=== PATIENT | female | born 1975 | race Caucasian/White ===

== ENCOUNTER → 2016-11-16 | Outpatient (CLI) | payer BC, OTHER | END | disposition home or self-care (01) | LOC: C.RDSM 11:41 | PROVIDERS: ATTEND Physical Medicine & Rehabilitation Sports Medicine | DX: M25.572 Pain in left ankle and joints of left foot (principal); Z98.890 Other specified postprocedural states ==

== ENCOUNTER 2016-11-18 12:29 | Emergency (ER) | payer OTHER ==
[~2016-11-18] VITALS: Ht 165.1 cm; Wt 90.8 kg
[2016-11-18 12:35] VITALS: TEMP 36.6; Ht 165.1 cm; Wt 90.8 kg
[2016-11-18] MEDS ORDERED: MoRPHine SULFATE 4 MG/ML 1 ML CARP\\VIAL IV STA (12:51)
[2016-11-18] MEDS ORDERED: ONDANSETRON INJ 2 MG/ML 2 ML VIAL IV STA (12:51)
[2016-11-18] MEDS ORDERED: OPTIRAY 320 IV PRN (13:00)
[2016-11-18 13:23] LABS: BASO % 0.1 %; BASO ABS # 0.01 K/uL (0-0.2); COMPLETE YES; EOS % 1.5 %; HEMATOCRIT 42.6 % (37-47); IG% 0.2 %; LYMPH % 26.7 %; LYMPH ABS # 2.59 K/uL (1.2-3.4); MEAN CELL VOLUME 85.2 fL (80-100); MEAN CORPUSCULAR HEMOGLOBIN 28.6 pg (25-34); MEAN CORPUSCULAR HGB CONC 33.6 g/dl (32-36); MEAN PLATELET VOLUME 9.6 fL (7.4-10.4); MONO % 4.5 %; PLATELET COUNT 382 K/uL (130-400); WHITE BLOOD COUNT 9.69 K/uL (4.8-10.8)
[2016-11-18 13:38] LABS: BUN/CREATININE RATIO 16.3 (10-20); CREATININE 0.68 mg/dl (0.60-1.20); POTASSIUM 3.9 mmol/L (3.5-5.1)
[2016-11-18] MEDS ORDERED: SODIUM CHLORIDE 0.9% 1000ML 1,000 ML IV STA (13:45)
[2016-11-18 15:35] LABS: URINE APPEARANCE CLEAR (CLEAR); URINE BILIRUBIN NEG (NEG); URINE COLOR YELLOW; URINE NITRITE NEG (NEG); URINE SPECIFIC GRAVITY 1.004 (1.000-1.030); UROBILINOGEN NEG (NEG)
[2016-11-18 15:41] LABS: MANUAL MICROSCOPIC REQUIRED? NO; REVIEW REQ? NO
--- NOTE | 2016-11-18 15:49 | DIAGNOSTIC IMAGING REPORT ---
CT SCAN OF THE ABDOMEN AND PELVIS WITH IV CONTRAST CLINICAL HISTORY: Right lower quadrant abdominal pain. COMPARISON STUDY: Abdominal CT dated 01/18/2006. TECHNIQUE: Following the IV administration of 119 cc of Optiray 320, CT scan of the abdomen and pelvis is performed from the lung bases to the proximal femora. Images are reviewed in the axial, sagittal, and coronal planes. IV contrast was administered without complication. Automated dose control exposure was utilized. CT DOSE: 765.49 mGy.cm FINDINGS: Lung bases: The heart is normal in size and without pericardial effusion. A calcified granuloma is seen at the right lung base. The lung bases are otherwise clear noting dependent atelectasis. Liver: The contrast-enhanced liver is normal in size, contour, and attenuation. There is no intrahepatic biliary ductal dilatation. The hepatic veins and portal veins are patent. Gallbladder: Unremarkable. Spleen: Normal in size and attenuation. Pancreas: Unremarkable. Adrenal glands: Unremarkable. Kidneys: The contrast enhanced kidneys are normal in size and without hydronephrosis. The kidneys enhance symmetrically. Abdominal vasculature: The abdominal aorta is normal in course and caliber. Bowel: The small bowel and colon are normal in course and caliber. The appendix is well-visualized and normal. Peritoneum: There is no intraperitoneal free air or abdominal ascites. There is a small fat-containing umbilical hernia. Lymphadenopathy: None. Pelvic viscera: The bladder, uterus, and adnexa are normal as visualized. There are bilateral ovarian follicles. A dominant follicle in the right ovary measures 2.5 cm. Skeletal structures: No lytic or blastic lesions are seen. IMPRESSION: There are no acute infectious or inflammatory findings in the abdomen or pelvis. Electronically signed by: Gurdeep Webb M.D. 11/18/2016 3:47 PM Dictated Date/Time: 11/18/2016 3:43 PM
[2016-11-18 16:24] VITALS: BP 144/96; PULSE 65; O2SAT 100
--- NOTE | 2016-11-18 17:54 | EMERGENCY ROOM VISIT NOTE ---
History Report prepared by Doraibmaria antonia: Bere Dykes Under the Supervision of: Dr. Jose Carlos Bahena M.D. First contact with patient: 12:39 Chief Complaint: ABDOMINAL PAIN Stated Complaint: ABDOMINAL PAIN, REFERRED BY MD Nursing Triage Summary: RLQ pain since yesterday. Nausea. Denies urinary s/sx or vaginal d/c or bleeding. History of Present Illness The patient is a 41 year old female who presents to the Emergency Room with complaints of constant right lower quadrant abdominal pain that began yesterday. Per nursing notes, the pain is an 8/10. She states that the pain came on suddenly. Nothing makes the pain better nor worse. It radiates slightly into her back. Denies fever, vomiting, diarrhea, urinary symptoms, abnormal vaginal discharge or bleeding or other complaints. The patient states that she had sexual intercourse once in the past 3 weeks and is unsure of a chance of . Source of History: patient Onset: yesterday Position: abdomen (RLQ) Symptom Intensity: 8/10 Timing: constant Modifying Factors (Relieving): other (none) Associated Symptoms: No diarrhea, No fevers, No vomiting Review of Systems See HPI for pertinent positives & negatives. A total of 10 systems reviewed and were otherwise negative. Past Medical & Surgical Medical Problems: (1) Diabetes Family History Cancer Heart disease Social History Smoking Status: Never Smoker Marital Status: Occupation Status: employed Current/Historical Medications No Active Prescriptions or Reported Meds Allergies Coded Allergies: NSAIDs (Verified Allergy, Mild, FREQUENT KIDNEY INFECTIONS AND STENTS, 07/25) NO NSAIDS A PRECAUTION FOR PREEXISTING POOR KIDNEY FUNCTION Physical Exam Vital Signs Date Time Temp Pulse Resp B/P Pulse Ox O2 Delivery O2 Flow Rate FiO2 11/18/16 16:24 65 18 144/96 100 11/18/16 13:57 61 16 128/92 99 Room Air 11/18/16 12:35 36.6 76 18 130/86 98 Room Air Physical Exam Constitutional: Vital signs reviewed. Eyes: Pupils are equal round reactive to light. Conjunctiva are noninjected. ENT: Pharynx is clear without erythema or exudate. Mucous membranes are moist. Neck supple without meningeal signs. Respiratory: Clear to auscultation bilaterally. Breath sounds are equal bilaterally. Cardiovascular: Regular rate and rhythm. No rubs or gallops. GI: Soft, nondistended. Right lower quadrant tenderness, no guarding. Bowel sounds are present. Musculoskeletal: No peripheral edema. No lower extremity tenderness. Integumentary: No cyanosis. Neurological: The patient is awake and alert. No focal deficits. Psychiatric: Normal affect. Medical Decision & Procedures ER Provider Diagnostic Interpretation: Radiology results as stated below per my review and the radiologist's interpretation: CT SCAN OF THE ABDOMEN AND PELVIS WITH IV CONTRAST CLINICAL HISTORY: Right lower quadrant abdominal pain. COMPARISON STUDY: Abdominal CT dated 01/18/2006. TECHNIQUE: Following the IV administration of 119 cc of Optiray 320, CT scan of the abdomen and pelvis is performed from the lung bases to the proximal femora. Images are reviewed in the axial, sagittal, and coronal planes. IV contrast was administered without complication. Automated dose control exposure was utilized. CT DOSE: 765.49 mGy.cm FINDINGS: Lung bases: The heart is normal in size and without pericardial effusion. A calcified granuloma is seen at the right lung base. The lung bases are otherwise clear noting dependent atelectasis. Liver: The contrast-enhanced liver is normal in size, contour, and attenuation. There is no intrahepatic biliary ductal dilatation. The hepatic veins and portal veins are patent. Gallbladder: Unremarkable. Spleen: Normal in size and attenuation. Pancreas: Unremarkable. Adrenal glands: Unremarkable. Kidneys: The contrast enhanced kidneys are normal in size and without hydronephrosis. The kidneys enhance symmetrically. Abdominal vasculature: The abdominal aorta is normal in course and caliber. Bowel: The small bowel and colon are normal in course and caliber. The appendix is well-visualized and normal. Peritoneum: There is no intraperitoneal free air or abdominal ascites. There is a small fat-containing umbilical hernia. Lymphadenopathy: None. Pelvic viscera: The bladder, uterus, and adnexa are normal as visualized. There are bilateral ovarian follicles. A dominant follicle in the right ovary measures 2.5 cm. Skeletal structures: No lytic or blastic lesions are seen. IMPRESSION: There are no acute infectious or inflammatory findings in the abdomen or pelvis. Electronically signed by: Gurdeep Webb M.D. 11/18/2016 3:47 PM Dictated Date/Time: 11/18/2016 3:43 PM Laboratory Results 11/18/16 13:00 Red Blood Count 5.00, Mean Corpuscular Volume 85.2, Mean Corpuscular Hemoglobin 28.6, Mean Corpuscular Hemoglobin Concent 33.6, Mean Platelet Volume 9.6, Neutrophils (%) (Auto) 67.0, Lymphocytes (%) (Auto) 26.7, Monocytes (%) (Auto) 4.5, Eosinophils (%) (Auto) 1.5, Basophils (%) (Auto) 0.1, Neutrophils # (Auto) 6.48, Lymphocytes # (Auto) 2.59, Monocytes # (Auto) 0.44, Eosinophils # (Auto) 0.15, Basophils # (Auto) 0.01 11/18/16 13:00 Test 11/18/16 13:00 11/18/16 13:41 11/18/16 15:00 White Blood Count 9.69 K/uL (4.8-10.8) Red Blood Count 5.00 M/uL (4.2-5.4) Hemoglobin 14.3 g/dL (12.0-16.0) Hematocrit 42.6 % (37-47) Mean Corpuscular Volume 85.2 fL (80-100) Mean Corpuscular Hemoglobin 28.6 pg (25-34) Mean Corpuscular Hemoglobin Concent 33.6 g/dl (32-36) Platelet Count 382 K/uL (130-400) Mean Platelet Volume 9.6 fL (7.4-10.4) Neutrophils (%) (Auto) 67.0 % Lymphocytes (%) (Auto) 26.7 % Monocytes (%) (Auto) 4.5 % Eosinophils (%) (Auto) 1.5 % Basophils (%) (Auto) 0.1 % Neutrophils # (Auto) 6.48 K/uL (1.4-6.5) Lymphocytes # (Auto) 2.59 K/uL (1.2-3.4) Monocytes # (Auto) 0.44 K/uL (0.11-0.59) Eosinophils # (Auto) 0.15 K/uL (0-0.5) Basophils # (Auto) 0.01 K/uL (0-0.2) RDW Standard Deviation 43.5 fL (36.4-46.3) RDW Coefficient of Variation 14.0 % (11.5-14.5) Immature Granulocyte % (Auto) 0.2 % Immature Granulocyte # (Auto) 0.02 K/uL (0.00-0.02) Anion Gap 6.0 mmol/L (3-11) Est Creatinine Clear Calc Drug Dose 123.7 ml/min Estimated GFR () 127.7 Estimated GFR (Non- 110.2 BUN/Creatinine Ratio 16.3 (10-20) Calcium Level 9.0 mg/dl (8.5-10.1) Total Bilirubin 0.4 mg/dl (0.2-1) Direct Bilirubin 0.1 mg/dl (0-0.2) Aspartate Amino Transf (AST/SGOT) 13 U/L (15-37) Alanine Aminotransferase (ALT/SGPT) 26 U/L (12-78) Alkaline Phosphatase 98 U/L (45-117) Total Protein 7.6 gm/dl (6.4-8.2) Albumin 3.5 gm/dl (3.4-5.0) Lipase 109 U/L (73-393) Urine Test NEG (NEG) Urine Color YELLOW Urine Appearance CLEAR (CLEAR) Urine pH 6.0 (4.5-7.5) Urine Specific [place] 1.004 (1.000-1.030) Urine Protein NEG (NEG) Urine Glucose (UA) NEG (NEG) Urine Ketones NEG (NEG) Urine Occult Blood NEG (NEG) Urine Nitrite NEG (NEG) Urine Bilirubin NEG (NEG) Urine Urobilinogen NEG (NEG) Urine Leukocyte Esterase NEG (NEG) Laboratory results as reviewed by me. Medications Administered Medications (Trade) Dose Ordered Sig/Timmy Route Start Time Stop Time Status Last Admin Dose Admin Morphine Sulfate (MoRPHine SULFATE INJ) 4 mg ONE STAT IV 11/18/16 12:51 11/18/16 12:52 DC 11/18/16 13:23 4 MG Ondansetron HCl 4 mg 4 mg NOW STAT IV 11/18/16 12:51 11/18/16 12:52 DC 11/18/16 13:22 4 MG Sodium Chloride (Nss 1000ml) 1,000 ml @ 999 mls/hr Q1H1M STAT IV 11/18/16 13:45 11/18/16 14:45 DC 11/18/16 13:48 999 MLS/HR ED Course 1244: The patient was evaluated in room C3. A complete history and physical exam was performed. 1251: Ordered Zofran Inj 4 mg IV, Morphine Sulfate 4 mg IV. 1345: Ordered NSS 1000 ml @ 999 mls/hr IV. 1348: I reassessed the patient. She is feeling better. I discussed test results so far with her. 1605: I reassessed the patient. She is still having some pain in the right lower pelvis. She will follow up with [employer]. The patient was discharged home. Medical Decision This is a 41-year-old female presents with right lower quadrant abdominal pain. Differential diagnosis includes acute appendicitis, perforation, abscess, ectopic , ovarian cyst, kidney stone. I did perform a limited focused review of portions of the patient's old chart on the electronic medical record. The patient has had no recent pertinent visits to this hospital. I did evaluate the patient as noted above. IV access was established. I did treat the patient with IV morphine and Zofran. I did order and personally review the patient's urinalysis as described above. There is no evidence of infection or blood. Urine test is negative. I did order and review the patient's blood work as noted in the electronic medical record. Her white blood cell count is not elevated. I did order a CT of the abdomen and pelvis. I did review the images myself as well as the radiology report as described above. There is no evidence of acute appendicitis. The appendix was visualized and normal. She does have dominant follicles on the right ovary. I did reassess the patient. She did feel better after the medication she was given. I did discuss the test results with her in detail. I did recommend close follow with her doctor and regulatory assistant for further evaluation. She was discharged in good condition. She was given return instructions as outlined below. Impression Primary Impression: RLQ abdominal pain Departure Information Dispostion Home / Self-Care Prescriptions No Active Prescriptions or Reported Meds Referrals Kem Brito III, M.D. (PCP) Patient Instructions ED Abd Pain Unkn Cause Fem, My [facility] Additional Instructions You have been examined and treated today on an emergency basis only. This is not a substitute for, or an effort to provide, complete comprehensive medical care. It is impossible to recognize and treat all injuries or illnesses in a single emergency department visit. It is therefore important that you follow up closely with your physician and/or regulatory assistant within 48 hours. Call as soon as possible for an appointment. Return for worsening symptoms or if you develop fever, vomiting, or any other concerning symptoms.
== END 2016-11-18 16:25 | disposition home or self-care (01) ==
LOC: C.EDB 12:30 → C.EDC 16:25
DX: R10.31 Right lower quadrant pain (principal); E11.9 Type 2 diabetes mellitus without complications; Z88.8 Allergy status to other drugs, medicaments and biological substances; Z80.9 Family history of malignant neoplasm, unspecified; Z82.49 Family history of ischemic heart disease and other diseases of the circulatory system

== ENCOUNTER → 2016-12-22 | Outpatient (CLI) | payer OTHER | END | disposition home or self-care (01) | LOC: C.PAPS 11:11 | PROVIDERS: ATTEND Obstetrics & Gynecology | DX: Z01.419 Encounter for gynecological examination (general) (routine) without abnormal findings (principal) ==

== ENCOUNTER → 2016-12-22 | Outpatient (CLI) | payer OTHER | END | disposition home or self-care (01) | LOC: C.LAB1850 09:42 | PROVIDERS: ATTEND Obstetrics & Gynecology | DX: N93.9 Abnormal uterine and vaginal bleeding, unspecified (principal); E28.8 Other ovarian dysfunction ==

== ENCOUNTER → 2017-06-17 | Outpatient (CLI) | payer OTHER ==
[2017-06-17 10:43] LABS: CHOLESTEROL/HDL RATIO 4.4
== END | disposition home or self-care (01) ==
LOC: C.LAB1850 09:11
PROVIDERS: ATTEND Internal Medicine
DX: Z13.220 Encounter for screening for lipoid disorders (principal)

== ENCOUNTER → 2018-03-08 | Outpatient (CLI) | payer OTHER ==
[~2018-03-08] MED LIST: CIPR-255 PO; PHEN-876 PO
[2018-03-08 15:57] LABS: ALBUMIN 3.4 gm/dl (3.4-5.0); BLOOD UREA NITROGEN 11 mg/dl (7-18); CALCIUM 8.5 mg/dl (8.5-10.1); CARBON DIOXIDE 26 mmol/L (21-32); CREATININE 0.73 mg/dl (0.60-1.20); GLUCOSE 113 mg/dl (70-99); PHOSPHORUS 3.5 mg/dl (2.5-4.9); POTASSIUM 3.7 mmol/L (3.5-5.1); SODIUM 136 mmol/L (136-145)
== END | disposition home or self-care (01) ==
LOC: C.LAB1850 14:13
PROVIDERS: ATTEND Internal Medicine Nephrology
DX: N20.0 Calculus of kidney (principal); E55.9 Vitamin D deficiency, unspecified

== ENCOUNTER 2024-02-06 19:19 | Inpatient (IN) ==
[2024-02-06 19:44] LABS: Hematocrit (blood only) 45.4 % (37.0-47.0); Hemoglobin 14.7 g/dl (12.0-16.0); Mean Corpuscular Hemoglobin 26.5 pg (25.0-34.0); Mean Corpuscular Hgb Conc 32.4 g/dL (32.0-36.0); Mean Corpuscular Volume 81.8 fL (80.0-100.0); Mean Platelet Volume 9.5 fL (9.4-12.4); Platelet Count 417 K/uL (130-400); RDW Coefficient of Variation 14.6 % (11.5-14.5); RDW Standard Deviation 42.8 fL (36.4-46.3); Red Blood Count 5.55 M/uL (4.20-5.40); White Blood Count 19.94 K/ul (4.8-10.8)
[2024-02-06 20:00] LABS: Appearance Urine Turbid (Clear); Bacteria Urine Automated None Seen (None Seen); Bilirubin Urine Negative (Negative); Blood Urine Trace (Negative); Cast Urine Automated 0-2 /lpf (0-2); Color Urine Yellow; Glucose Urine UA Negative (Negative); Ketones Urine Trace (Negative); Leukocyte Esterase Urine 3+ (Negative); Nitrite Urine Negative (Negative); Protein Urine 1+ (Negative); RBC Urine Automated 0-2 /hpf (0-2); Specific Gravity Urine 1.016 (1.000-1.030); Urobilinogen Urine Negative (Negative); WBC Urine Automated >50 /hpf (0-5); pH Urine 8.5 (4.5-7.5)
[2024-02-06 20:00] LABS: Albumin Globulin Ratio 1.2 (0.9-2); Albumin Level 4.5 gm/dl (3.4-5.0); Bilirubin,Total 0.6 mg/dl (0.2-1.0); Calcium 9.8 mg/dl (8.6-10.3); Est GFR (African American) 102.5 ml/min; Est GFR (Non-African American) 88.4 ml/min; Globulin 3.9 gm/dl (2.5-4.0); Potassium 3.7 mmol/L (3.5-5.1); Total Protein 8.4 gm/dl (6.0-8.3)
[2024-02-06 20:06] LABS: Basophils # (auto) 0.05 K/uL (0.00-0.20); Basophils % (auto) 0.3 %; Eosinophils # (auto) 0.03 K/uL (0.00-0.50); Eosinophils % (auto) 0.2 %; Immature Granulocytes # (auto) 0.11 K/uL (0.01-0.20); Immature Granulocytes % (auto) 0.6 %; Lymphocytes # (auto) 1.17 K/uL (1.20-3.40); Lymphocytes % (auto) 5.9 %; Monocytes # (auto) 0.56 K/uL (0.11-0.59); Monocytes % (auto) 2.8 %; Neutrophils # (auto) 18.02 K/uL (1.40-6.50); Neutrophils % (auto) 90.2 %; Polychromasia 1+; Toxic Vacuolation 1+
[2024-02-06 20:33] LABS: Influenza A virus by PCR Negative (Neg); Influenza B virus by PCR Negative (Neg); RSV by PCR Negative (Neg); SARS CoV2 RNA(COVID-19) Ceph NEGATIVE (Negative)
[2024-02-06] MEDS: OPTIRAY 320 100ml IV ONE (20:58)
[2024-02-06] MEDS: cefTRIAXone SODIUM 2,000 MG/50 ML BAG IV STA (21:04)
[2024-02-06] MEDS: ACETAMINOPHEN 500 MG TAB PO STA (21:04)
[2024-02-06] MEDS: SODIUM CHLORIDE 0.9% 1,000 ML IV ONE (21:05)
--- NOTE | 2024-02-06 21:16 | Emergency Department Note ---
Impression & Plan Pyelonephritis, Back pain ED Provider Note Provider: Ramon Samayoa MD DATE OF SERVICE: 02/06/2024 CHIEF COMPLAINT: Back pain, lower abdominal pain HISTORY OF PRESENT ILLNESS: Patient is a 48-year-old female history of kidney stones presenting here today reporting over the last 2 days she is experiencing some lower abdominal discomfort and now worsening pain in the lower back region left greater than right. No significant nausea or vomiting. Some low-grade fevers by report yesterday and today. Little bit of difficulty urinating but no blood in the urine reported. Has not take anything for pain at home (Tylenol or NSAIDs) but has been having a few myalgias in her shoulders and legs. History of some kidney stone before this may be a little bit similar. No syncope or trauma reported. PAST MEDICAL HISTORY: As noted above MEDICATIONS: Reviewed home medications does not currently report significant SOCIAL HISTORY: Non-smoker PHYSICAL EXAM: GENERAL: alert and oriented in no acute distress on stretcher laying on her left side resting Head: normocephalic and atraumatic EYES: No injection, discharge or icterus. EOMI. NECK: Trachea midline. ENT: Mucous membranes pink and moist. LUNGS: Airway patent. No retractions or tachypnea HEART: Regular tachycardic rate and rhythm ABDOMEN: Soft and non-tender in the upper abdomen with some slight suprapubic tenderness. Nonscaly tender in the right lower quadrant. No masses appreciable. BACK: Some left CVA tenderness with some slight bilateral SI joint tenderness SKIN: Acyanotic, warm, dry, without rashes EXTREMITIES: Without swelling, tenderness or deformity NEUROLOGICAL: No focal deficits. No aphasia. No facial droop or slurred speech. Ambulatory. EK bpm sinus tachycardia without PVC or PAC. No acute ST segment elevation or depression with a QTc of 440. CONTINUOUS CARDIAC MONITORING: was ordered and showed a heart rate of 80s-120s bpm in sinus tachycardia to NSR Patient's laboratory studies and imaging reviewed. Differential includes Renal colic, UTI, appendicitis, diverticulitis, mesenteric ischemia, aortic pathology, infections, inflammatory bowel disease, PUD, biliary pathology, as well as other pathologies. IMPRESSION/MEDICAL DECISION MAKING: Patient with some low back pain and suprapubic pain. Low-grade fever upon arrival mildly tachycardic. Given some IV fluids as well as some Tylenol here. Blood work from triage with evidence of significant leukocytosis of 19.9. Urinalysis grossly positive for signs of infection although no RBCs noted. Sent for scan to exclude kidney stone or other intra-abdominal pathology but seems likely UTI and pyelonephritis. Negative Lyme, flu, COVID and RSV screen. No significant respiratory symptoms and doubt pneumonia. Slight hyponatremia 133 with normal renal function 0.8. No evidence of acute hepatitis on labs. Symptoms do not seem consistent with pancreatitis or bowel obstruction. Given IV fluids in addition to the Tylenol as well as a dose of ceftriaxone for antibiotic coverage. Patient does not appear meningitic. CT scan of the abdomen pelvis obtained. Liter of normal saline was ordered as well as a liter of LR for 2 L of IV crystalloid administered more than 30 mm/kg based on ideal body weight given elevated BMI. Patient resting on reassessment. No distress and advised of some wait for radiology report for Wednesday evening to return. Do wish to exclude kidney stone with findings concerning for UTI and pyelonephritis. Does not appear unstable at this time. Signed out to Dr. Ortiz waiting on CT report. Will continue be monitored for any instability such as hypotension. DIAGNOSIS: Acute UTI, pyelonephritis DISPOSITION: Signed out pending CT report for final disposition possible admission if findings of infected kidney stone noted Past Med/Surg History Problem List Right ureteral stone Sepsis Hypertension Right nephrolithiasis Back pain (Acute) Pyelonephritis (Acute) Encounter for pre-operative examination Hematuria Urinary symptom or sign H/O gestational diabetes mellitus, not currently Subclinical hypothyroidism Per records ; TSH and Free T4 WNL 07/2023 Elevated platelet count Hyperpigmentation of skin Hearing decreased Heavy menstrual bleeding Encounter for gynecological examination without abnormal finding Multiple thyroid nodules (Chronic) Goiter (Chronic) BMI 32.0-32.9,adult Nephrolithiasis (Chronic) Sensorineural hearing loss of both ears slight, no hearing aides 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 - can't tolerate TSH and Free T4 WNL 07/2023 Vitamin D deficiency Medical History Hyperglycemia Hgb A1C 6.3 in 07/2023 Borderline hyperlipidemia Borderline hypertension Nausea and vomiting after administration of anesthetic agent Bladder mass History of kidney stones History of anemia Surgical History Hx of biopsy Thyroid Nodule, benign History of laparoscopy x2 for ovaries History of open reduction and internal fixation (ORIF) procedure x 3 surgeries left tib/fib/hardware & removal of hardware History of cystoscopy History of lithotripsy x 2 Status post excision of lipoma abdomen - benign History of wisdom tooth extraction History of tonsillectomy and adenoidectomy S/P section Family History Grandfather (Maternal) Heart disease Myocardial infarction Daughter Ventricular septal defect Aunt Breast cancer Father Prostate cancer Other No family history of adverse response to anesthesia Denies family history of Ovarian cancer Colorectal cancer Social History Smoking Status: Never smoker Second Hand Exposure: No; Do You Dip or Chew Tobacco: No; Hx Alcohol Use: Yes Alcohol type: beer Hx Substance Use: No Preferred Language: Mongolian Communication Ability: Effective Servicer Coin Machines Required: No Beliefs That Will Affect Care: None marital status: Current Living Situation: Spouse Current Living Situation Comment: Lives with and 5 children current occupational status: employed current occupation: Landlord Feels Safe at Home: No Is there a partner from a previous relationship who is making you feel unsafe now?: No Childhood Exposure to Second-Hand Smoke: No Dental Care, Regularly: Yes Seatbelt Use: always Sunscreen Use: Yes Assistive Devices: None Allergies Allergies Allergy/AdvReac Type Severity Reaction Status Date / Time Estrogens Allergy Severe FACE Verified 02/06/24 21:18 SWELLS WITH CONTROL PILLS ethinyl estradiol Allergy Severe FACE Verified 02/06/24 21:18 [From NuvaRing] SWELLED etonogestrel [From NuvaRing] Allergy Severe FACE Verified 02/06/24 21:18 SWELLED Home Meds Home Medications Medication Instructions Recorded Confirmed cholecalciferol (vitamin D3) 50 5,000 unit PO QAM 09/04/21 02/06/24 mcg (2,000 unit) capsule hydrochlorothiazide 25 mg tablet 25 mg PO QAM 10/21/23 02/06/24 biotin 10 mg tablet 10 mg PO DAILY 02/06/24 02/06/24 Results & Data (ED) Vital Signs Vital Signs - 24 hr 02/06/24 19:20 02/06/24 19:43 02/06/24 22:11 Temperature 37.6 C H Temperature Source Oral Pulse Rate 121 H 109 H Pulse Rate [Apical] 79 Respiratory Rate 20 20 Respiratory Effort / Characteristics Non-Labored Spontaneous Non-Labored Spontaneous Respiratory Depth Normal Normal Respiratory Pattern Regular Blood Pressure 123/79 Blood Pressure [Right Arm] 113/68 Blood Pressure Mean 93 Blood Pressure Mean [Right Arm] 83 Pulse Oximetry 97 95 Oxygen Delivery Method Room Air Room Air Sepsis Recent Fever Within 48 Hours No Sepsis New/Unexplained Change in Mental Status N/A Sepsis Action Taken by Nursing No Action Required 02/06/24 23:00 02/06/24 23:30 02/06/24 23:40 Temperature Temperature Source Pulse Rate 74 Pulse Rate [Apical] 85 78 Respiratory Rate 18 18 Respiratory Effort / Characteristics Non-Labored Non-Labored Respiratory Depth Normal Normal Respiratory Pattern Regular Regular Blood Pressure Blood Pressure [Right Arm] 113/74 114/74 Blood Pressure Mean Blood Pressure Mean [Right Arm] 87 87 Pulse Oximetry 96 92 Oxygen Delivery Method Room Air Room Air Sepsis Recent Fever Within 48 Hours Sepsis New/Unexplained Change in Mental Status Sepsis Action Taken by Nursing 02/07/24 00:00 02/07/24 01:00 02/07/24 02:00 Temperature Temperature Source Pulse Rate Pulse Rate [Apical] 72 76 73 Respiratory Rate 18 16 16 Respiratory Effort / Characteristics Non-Labored Non-Labored Non-Labored Respiratory Depth Normal Normal Normal Respiratory Pattern Regular Regular Regular Blood Pressure Blood Pressure [Right Arm] 100/59 L 96/56 L 108/70 Blood Pressure Mean Blood Pressure Mean [Right Arm] 72 69 82 Pulse Oximetry 94 99 97 Oxygen Delivery Method Room Air Room Air Room Air Sepsis Recent Fever Within 48 Hours Sepsis New/Unexplained Change in Mental Status Sepsis Action Taken by Nursing 02/07/24 03:00 02/07/24 03:38 Temperature Temperature Source Pulse Rate 70 Pulse Rate [Apical] 57 L Respiratory Rate 16 Respiratory Effort / Characteristics Non-Labored Respiratory Depth Normal Respiratory Pattern Regular Blood Pressure Blood Pressure [Right Arm] 91/60 L Blood Pressure Mean Blood Pressure Mean [Right Arm] 70 Pulse Oximetry 96 Oxygen Delivery Method Room Air Sepsis Recent Fever Within 48 Hours Sepsis New/Unexplained Change in Mental Status Sepsis Action Taken by Nursing Laboratory Data 02/06/24 19:30 02/06/24 19:30 Lab Results 02/06/24 02/06/24 02/06/24 Range/Units 19:27 19:30 19:42 WBC 19.94 H (4.8-10.8) K/ul RBC 5.55 H (4.20-5.40) M/uL Hgb 14.7 (12.0-16.0) g/dl Hct 45.4 (37.0-47.0) % MCV 81.8 (80.0-100.0) fL MCH 26.5 (25.0-34.0) pg MCHC 32.4 (32.0-36.0) g/dL RDW Std Deviation 42.8 (36.4-46.3) fL RDW Coeff of Srini 14.6 H (11.5-14.5) % Plt Count 417 H (130-400) K/uL MPV 9.5 (9.4-12.4) fL Immature Gran % (Auto) 0.6 % Neut % (Auto) 90.2 % Lymph % (Auto) 5.9 % Delta % (Auto) 2.8 % Eos % (Auto) 0.2 % Baso % (Auto) 0.3 % Neut # (Auto) 18.02 H (1.40-6.50) K/uL Lymph # (Auto) 1.17 L (1.20-3.40) K/uL Delta # (Auto) 0.56 (0.11-0.59) K/uL Eos # (Auto) 0.03 (0.00-0.50) K/uL Baso # (Auto) 0.05 (0.00-0.20) K/uL Immature Gran # (Auto) 0.11 (0.01-0.20) K/uL Toxic Vacuolation 1+ Polychromasia 1+ Sodium 133 L (136-145) mmol/L Potassium 3.7 (3.5-5.1) mmol/L Chloride 95 L (98-107) mmol/L Carbon Dioxide 25 (21-32) mmol/L Anion Gap 13 H (3-11) BUN 16 (6-23) mg/dl Creatinine 0.80 (0.6-1.2) mg/dl Est Cr Clr Drug Dosing 100.0 ml/min Est GFR ( Amer) 102.5 ml/min Est GFR (Non-Af Amer) 88.4 ml/min BUN/Creatinine Ratio 20.0 (10-20) Glucose 161 H (70-99(Fasting)) mg/dl Calcium 9.8 (8.6-10.3) mg/dl Total Bilirubin 0.6 (0.2-1.0) mg/dl AST 35 (13-39) U/L ALT 55 H (7-52) U/L Alkaline Phosphatase 102 (34-104) U/L Total Protein 8.4 H (6.0-8.3) gm/dl Albumin 4.5 (3.4-5.0) gm/dl Globulin 3.9 (2.5-4.0) gm/dl Albumin/Globulin Ratio 1.2 (0.9-2) Urine Color Yellow Urine Appearance Turbid A (Clear) Urine pH 8.5 H (4.5-7.5) Ur Specific Marilla 1.016 (1.000-1.030) Urine Protein 1+ H (Negative) Urine Glucose (UA) Negative (Negative) Urine Ketones Trace H (Negative) Urine Blood Trace H (Negative) Urine Nitrite Negative (Negative) Urine Bilirubin Negative (Negative) Urine Urobilinogen Negative (Negative) Ur Leukocyte Esterase 3+ H (Negative) Urine WBC (Auto) >50 H (0-5) /hpf Urine RBC (Auto) 0-2 (0-2) /hpf U Hyaline Cast (Auto) 0-2 (0-2) /lpf U Epithel Cells (Auto) 3-5 H (0-2) /hpf Urine Bacteria (Auto) None Seen (None Seen) Lyme Disease Screen Negative (Negative) SARS-CoV-2 (PCR) NEGATIVE (Negative) Influenza Type A (PCR) Negative (Neg) Influenza Type B (PCR) Negative (Neg) RSV (RT-PCR) Negative (Neg) Administered Medications Sodium Chloride (Nss) 1,000 mls @ 100 mls/hr IV .Q10H BETTY Stop: 02/08/24 00:14 Last Admin: 02/07/24 05:11 Dose: 100 mls/hr Documented By: SRW Lactated Ringer's (Lr) 1,000 mls @ 15 mls/hr IV .Q24H BETTY Stop: 03/08/24 13:29 Last Infusion: 02/07/24 14:14 Dose: Infused Documented By: Admin: 02/07/24 13:34 Dose: 15 mls/hr Documented By: [email or web address] Ketorolac Tromethamine (Ketorolac Tromethamine 15 Mg/Ml Vial) 15 mg IV Q6H PRN PRN Reason: Pain Stop: 02/12/24 03:51 Last Admin: 02/07/24 05:11 Dose: 15 mg Documented By: W Morphine Sulfate (Morphine Sulfate 2 Mg/Ml Carp) 2 mg IV Q4 PRN PRN Reason: Pain Stop: 02/21/24 08:14 Last Admin: 02/07/24 08:27 Dose: 2 mg Documented By: LOVE Discontinued Medications Acetaminophen (Acetaminophen 500 Mg Tab) 1,000 mg PO NOW STA Stop: 02/06/24 20:50 Last Admin: 02/06/24 21:04 Dose: 1,000 mg Documented By: GEOFFREY Diatrizoate Meglumine (Diatrizoate Meglumine 30% 100ml Vial) 20 ml INSTIL UD ONE Stop: 02/07/24 14:21 Last Admin: 02/07/24 14:36 Dose: 10 ml Documented By: [id number] Sodium Chloride (Nss) 1,000 mls @ 999 mls/hr IV .Q1H1M ONE Stop: 02/06/24 21:44 Last Infusion: 02/06/24 22:12 Dose: Infused Documented By: Admin: 02/06/24 21:05 Dose: 999 mls/hr Documented By: GEOFFREY Ceftriaxone Sodium (Rocephin) 2,000 mg in 50 mls @ 100 mls/hr IV NOW STA Stop: 02/06/24 21:14 Last Infusion: 02/06/24 22:12 Dose: Infused Documented By: Admin: 02/06/24 21:04 Dose: 100 mls/hr Documented By: GEOFFREY Lactated Ringer's (Lr) 1,000 mls @ 999 mls/hr IV .Q1H1M ONE Stop: 02/07/24 00:35 Last Infusion: 02/07/24 00:48 Dose: Infused Documented By: Admin: 02/06/24 23:45 Dose: 999 mls/hr Documented By: OPAL Lactated Ringer's (Lr) 1,000 mls @ 999 mls/hr IV .Q1H1M STA Stop: 02/07/24 04:24 Last Infusion: 02/07/24 04:39 Dose: Infused Documented By: Admin: 02/07/24 03:35 Dose: 999 mls/hr Documented By: OPAL Ioversol (Optiray 320 100ml) 94 ml IV ONCE ONE Stop: 02/06/24 20:58 Last Admin: 02/06/24 20:58 Dose: 94 ml Documented By: EDK Discharge Plan Visit Data Chief Complaint: Back Injury/Pain Stated Complaint: LOWER BACK PAIN, POSSIBLE KIDNEY STONE ED Provider: Janina Ortiz Discharge Problem: Pyelonephritis, Back pain Patient Disposition: Admitted As Inpatient Discharge Instructions Interventions: ED Discharge Assessment Last Done: 02/07/24 04:41 Discharge Problem: Back pain Qualifiers: Back pain location: low back pain Chronicity: acute Back pain laterality: b ilateral Sciatica presence: without sciatica Qualified Code(s): M54.50 - Low back pain, unspecified
[2024-02-06] MEDS: LACTATED RINGER'S 1,000 ML IV ONE (23:45)
--- NOTE | 2024-02-07 02:06 | CT Scan Report ---
Exam(s): CT ABDOMEN + PELVIS With Contrast IV Amt: OPTIRAY 320 94ML EXAM: CT Abdomen and Pelvis With Intravenous Contrast CLINICAL HISTORY: Back Pain. TECHNIQUE: Axial computed tomography images of the abdomen and pelvis with intravenous contrast. CTDI is 27.97 mGy and DLP is 1462.85 mGy-cm. Automated exposure control was utilized for the study. A dose lowering technique was utilized adhering to the principles of ALARA. CONTRAST: Patient received OPTIRAY 320 94ML of IV contrast COMPARISON: Pelvic ultrasound 07/16/[address] abdomen and pelvis 07/16/2023 FINDINGS: Lung bases: Unremarkable. No mass. No consolidation. ABDOMEN: Liver: Hepatomegaly and fatty infiltration of the liver. The liver measures 18.2 cm. Gallbladder and bile ducts: Unremarkable. No calcified stones. No ductal dilation. Pancreas: Unremarkable. No mass. No ductal dilation. Spleen: Unremarkable. No splenomegaly. Adrenals: Unremarkable. No mass. Kidneys and ureters: Mild right hydronephrosis secondary to a 4 mm uteropelvic junction calculus. Additional nonobstructing renal calculi measure up to 3 mm. No left hydronephrosis. Stomach and bowel: Diverticulosis. No obstruction. No mucosal thickening. PELVIS: Appendix: Normal appendix. Bladder: Unremarkable. No mass. Reproductive: Unremarkable as visualized. ABDOMEN and PELVIS: Intraperitoneal space: Unremarkable. No free air. No significant fluid collection. Bones/joints: There are degenerative changes of the spine. No acute fracture. No dislocation. Soft tissues: Unremarkable. Vasculature: Unremarkable. No abdominal aortic aneurysm. Lymph nodes: Unremarkable. No enlarged lymph nodes. IMPRESSION: 1. Mild right hydronephrosis secondary to a 4 mm uteropelvic junction calculus. 2. Additional nonobstructing renal calculi measure up to 3 mm. No left hydronephrosis. 3. Hepatomegaly and fatty infiltration of the liver. 4. Diverticulosis. Electronically signed by: Geraldine Reynolds MD 02/07/24 02:05 AM
--- NOTE | 2024-02-07 03:11 | History & Physical Report ---
Date of Service February 07, 2024 Assessment & Plan (1) Pyelonephritis: Plan: Pt is a 48 yo female with PMH of impaired fasting glucose, HLD, HTN, and kidney stones presenting due to low back pain, chills/fever, and nausea. Sepsis secondary to infected right nephrolithiasis - lab work significant for WBC 19, Na 133, Cr 0.80, BS 161 - pt also tachycardic upon presentation and intermittently hypotensive - UA showing 3+ LE, no nitrites, >50 WBC, no bacteria; urine culture pending - CTAP showing right hydronephrosis secondary to 4mm calculus at the uteropelvic junction; nonobstructing calculus seen on left - s/p 2L IVF in ER; additional 1L bolus to complete sepsis fluids and will continue IVF with NS at 80 mL/hr x2 - hold home HCTZ d/t hypotension; will defer initiation of tamsulosin at this time d/t hypotension and size of stone - s/p ceftriaxone x1 in ED; will continue upon admission - tylenol PRN for pain or fever, ibuprofen/toradol PRN for pain - consult urology for further eval and management Diet: NPO until urologic eval DVT ppx: deferred as pt low risk; encourage ambulation Code: full Dispo: admit to med/surg (2) Right nephrolithiasis: (3) Sepsis: History of Present Illness Chief Complaint: back pain, fevers/chills Primary Care Provider: Angel Sol MD Pt is a 48 yo female with PMH of impaired fasting glucose, HLD, HTN, and kidney stones presenting due to low back pain, chills/fever, and nausea. Pt notes her symptoms started 2 days ago with fevers, chills, and back pain. She denies pain with urination but does endorse some trouble emptying her bladder. She relays an extensive hx of kidney stones including multiple lithotripsies. She is on HCTZ d/t her hx of stones. She has had oxalate stones in the past. In the ER, pt received LR 1L x1, NS 1L x1, tylenol 1000mg x1, and ceftriaxone x1. Allergies Allergy/AdvReac Type Severity Reaction Status Date / Time Estrogens Allergy Severe FACE Verified 02/06/24 21:18 SWELLS WITH CONTROL PILLS ethinyl estradiol Allergy Severe FACE Verified 02/06/24 21:18 [From NuvaRing] SWELLED etonogestrel [From NuvaRing] Allergy Severe FACE Verified 02/06/24 21:18 SWELLED Home Medications Medication Instructions Recorded Confirmed Type cholecalciferol (vitamin D3) 50 5,000 unit PO QAM 09/04/21 02/06/24 History mcg (2,000 unit) capsule hydrochlorothiazide 25 mg tablet 25 mg PO QAM 10/21/23 02/06/24 History biotin 10 mg tablet 10 mg PO DAILY 02/06/24 02/06/24 History Past Med/Surg History Problem List (Updated 02/07/24 @ 03:17 by Roxana Dejesus DO) Sepsis Hypertension Right nephrolithiasis Back pain (Acute) Pyelonephritis (Acute) Encounter for pre-operative examination Hematuria Urinary symptom or sign H/O gestational diabetes mellitus, not currently Subclinical hypothyroidism Per records ; TSH and Free T4 WNL 07/2023 Elevated platelet count Hyperpigmentation of skin Hearing decreased Heavy menstrual bleeding Encounter for gynecological examination without abnormal finding Multiple thyroid nodules (Chronic) Goiter (Chronic) BMI 32.0-32.9,adult Nephrolithiasis (Chronic) Sensorineural hearing loss of both ears slight, no hearing aides 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 - can't tolerate TSH and Free T4 WNL 07/2023 Vitamin D deficiency Medical History (Updated 02/07/24 @ 03:17 by Roxana Dejesus DO) Hyperglycemia Hgb A1C 6.3 in 07/2023 Borderline hyperlipidemia Borderline hypertension Nausea and vomiting after administration of anesthetic agent Bladder mass History of kidney stones History of anemia Surgical History Hx of biopsy Thyroid Nodule, benign History of laparoscopy x2 for ovaries History of open reduction and internal fixation (ORIF) procedure x 3 surgeries left tib/fib/hardware & removal of hardware History of cystoscopy History of lithotripsy x 2 Status post excision of lipoma abdomen - benign History of wisdom tooth extraction History of tonsillectomy and adenoidectomy S/P section Family History Grandfather (Maternal) Heart disease Myocardial infarction Daughter Ventricular septal defect Aunt Breast cancer Father Prostate cancer Other No family history of adverse response to anesthesia Denies family history of Ovarian cancer Colorectal cancer Social History Smoking Status: Never smoker Second Hand Exposure: No; Do You Dip or Chew Tobacco: No; Hx Alcohol Use: Yes Alcohol type: beer, wine and hard liquor Hx Substance Use: No Preferred Language: Taiwanese Communication Ability: Effective Exploration Engineer Required: No Beliefs That Will Affect Care: None marital status: Current Living Situation: Family Current Living Situation Comment: Lives with and 5 children current occupational status: employed current occupation: Landlord Feels Safe at Home: Yes Childhood Exposure to Second-Hand Smoke: No Dental Care, Regularly: Yes Seatbelt Use: always Sunscreen Use: Yes Assistive Devices: None Review of Systems Review of Systems: As per HPI Physical Exam Constitutional: NAD, mildly hypotensive. Respiratory: CTA bilaterally. Non labored breathing. No rhonchi, wheezing, or crackles. Cardiovascular: RRR. No murmurs noted. No LE edema. Gastrointestinal (Abdomen): Nontender, +BS. No masses noted. Skin: No rashes or skin lesions noted. Neurologic: Sensation grossly intact. No FND appreciated. Psychiatric: Speech of normal pace and content. Mood and affect congruent. Results & Data Results & Data Vital Signs (Past 12 Hours) Vital Signs Temp Pulse Pulse Resp BP BP Pulse Ox 02/07/24 03:00 57 L 16 91/60 L 96 02/07/24 02:00 73 16 108/70 97 02/07/24 01:00 76 16 96/56 L 99 02/07/24 00:00 72 18 100/59 L 94 02/06/24 23:40 74 02/06/24 23:30 78 18 114/74 92 02/06/24 23:00 85 18 113/74 96 02/06/24 22:11 79 20 113/68 95 02/06/24 19:43 109 H 02/06/24 19:20 37.6 C H 121 H 20 123/79 97 O2 Del Method 02/07/24 03:00 Room Air 02/07/24 02:00 Room Air 02/07/24 01:00 Room Air 02/07/24 00:00 Room Air 02/06/24 23:40 02/06/24 23:30 Room Air 02/06/24 23:00 Room Air 02/06/24 22:11 Room Air 02/06/24 19:43 02/06/24 19:20 Room Air Resident Activity Tracking Resident Involvement: Resident Care Provided Care Provided: Adult Hospital Medicine
[2024-02-07] MEDS: LACTATED RINGER'S 1,000 ML IV STA (03:35)
[2024-02-07] MEDS ORDERED: ACETAMINOPHEN 325 MG TAB PO PRN (03:52)
[2024-02-07] MEDS: KETOROLAC TROMETHAMINE 15 MG/ML VIAL IV PRN (05:11)
[2024-02-07] MEDS: SODIUM CHLORIDE 0.9% 1,000 ML IV SCH (05:11)
--- NOTE | 2024-02-07 08:05 | Urology Consultation ---
Date of Consultation February 07, 2024 Assessment & Plan (1) Right ureteral stone: 48-year-old female admitted for right proximal ureteral stone and suspicion of UTI She is afebrile and hemodynamically stable Labs reviewed (02/05)creatinine 0.8, WBC 19.94 UA on arrival with suspicion of UTI Urine culture pending, currently on IV ceftriaxone Continue with broad-spectrum antibiotics and narrow per sensitivity data when available CT findings reviewed and discussed Discussed concern for right ureteral stone and suspicion of UTI, leukocytosis Discussed recommendation for right ureteral stent placement today, stone treatment at a later date Ureteral stents were reviewed in detail She is agreeable to proceed with stent placement today Proceed to the OR for cystoscopy, retrograde pyelogram and right ureteral stent placement Risk and benefits of procedure to be reviewed with patient by Dr. Akhil Garibay n.p.o. for procedure Continue scheduled IV antibiotics preoperatively will follow Attending note: Patient independently assessed, examined, interviewed, and evaluated. Agree with note as above. Patient's vitals and labs were all reviewed. Pertinent values in the HPI and plan section. Imaging was reviewed interpreted by myself. Agree with read. Vitals were reviewed. Discussed findings extensively with patient and family. Reviewed with nurse practitioner as well as consulting physicians/team. Patient's complicated medical and surgical history was reviewed and summarized above. Patient's surgical, medical, social, and family history were all reviewed with pertinent values as above. Discussed patient's current diagnosis as well as concerns and issues. Reviewed different options moving forward. Discussed potential risks and benefits as well as possible options and concerns. Reviewed potential surgical options and interventions. Discussed potential issues and concerns related to intervention. Risk and benefits were discussed extensively with patient and any available family. Discussed potential risks related to anesthesia. Discussed risks of bleeding infection and injury. Patient with borderline low blood pressure most recent came back 105/70. Temp was 36.5 with Tmax of 37.6. Hemoglobin 14.7. White count markedly elevated at 19.94. Creatinine came back at 0.8. CT imaging was reviewed interpreted by myself. Obstructing stone at right UPJ. Appears to be approximately 4 mm causing considerable hydronephrosis and obstruction of the kidney. Reviewed extensively with patient. Discussed risk and benefits. Specifically reviewed risk and benefits of surgical intervention. Discussed ureteroscopy and treatment. Discussed options for stent placement. Discussed monitoring. Discussed need for antibiotic management. Discussed possible options for intervention after drainage. Reviewed extensively risk and benefits. Multiple questions were answered. Risks and benefits discussed at length for procedure. These include bleeding, infection, injury to surrounding tissues or organs, and risks associated with anesthesia. Patient states understanding and agrees to proceed. Will sign consent and schedule. Plan for cystoscopy with possible right stent placement and treatment. History of Present Illness Attending Physician: Brianne Beltran MD History of Present Illness This is a 48-year-old female with past medical history of nephrolithiasis who presented to the emergency department on 02/06/2024 with 2-day history of lower abdominal discomfort and worsening low back pain with associated nausea and low- grade fever at home. On arrival, temperature was 37.6, tachycardic, normotensive. Lab work showed leukocytosis of 19.94, sodium 133, creatinine 0.80. Urinalysis notable for turbid urine, trace blood, 3+ LE, >50 WBC, 3-5 epithelial cells and negative for bacteria. Workup in the emergency department included CT abdomen and pelvis showed a 4 mm right UPJ stone with mild hydronephrosis; bilateral nonobstructing renal stones. ED course: IV fluids, ceftriaxone and acetaminophen. She was admitted to the hospital medicine service for ureteral stone and suspicion of UTI. Patient seen and examined at bedside this morning. She is resting in bed, arouses easily to her name. She reports ongoing right flank discomfort, currently rated 6 out of 10. No fever or chills overnight. Voiding without difficulty. No dysuria or hematuria. No nausea or vomiting at present. She is currently NPO. She has prior history of kidney stones with history of surgical intervention. She is status post TURBT with Dr. Christopher in October 2023. Pathology revealed squamous metaplasia/cystitis glandularis. Allergies Allergy/AdvReac Type Severity Reaction Status Date / Time Estrogens Allergy Severe FACE Verified 02/06/24 21:18 SWELLS WITH CONTROL PILLS ethinyl estradiol Allergy Severe FACE Verified 02/06/24 21:18 [From NuvaRing] SWELLED etonogestrel [From NuvaRing] Allergy Severe FACE Verified 02/06/24 21:18 SWELLED Home Medications Medication Instructions Recorded Confirmed Type cholecalciferol (vitamin D3) 50 5,000 unit PO QAM 09/04/21 02/06/24 History mcg (2,000 unit) capsule hydrochlorothiazide 25 mg tablet 25 mg PO QAM 10/21/23 02/06/24 History biotin 10 mg tablet 10 mg PO DAILY 02/06/24 02/06/24 History Patient History Medical History Hyperglycemia Hgb A1C 6.3 in 07/2023 Borderline hyperlipidemia Borderline hypertension Nausea and vomiting after administration of anesthetic agent Bladder mass History of kidney stones History of anemia Surgical History Hx of biopsy Thyroid Nodule, benign History of laparoscopy x2 for ovaries History of open reduction and internal fixation (ORIF) procedure x 3 surgeries left tib/fib/hardware & removal of hardware History of cystoscopy History of lithotripsy x 2 Status post excision of lipoma abdomen - benign History of wisdom tooth extraction History of tonsillectomy and adenoidectomy S/P section Family History Grandfather (Maternal) Heart disease Myocardial infarction Daughter Ventricular septal defect Aunt Breast cancer Father Prostate cancer Other No family history of adverse response to anesthesia Denies family history of Ovarian cancer Colorectal cancer Social History Smoking Status: Never smoker Second Hand Exposure: No; Do You Dip or Chew Tobacco: No; Hx Alcohol Use: Yes Alcohol type: beer Hx Substance Use: No Preferred Language: [place] Communication Ability: Effective Net Developer With [employer] Required: No Beliefs That Will Affect Care: None marital status: Current Living Situation: Spouse Current Living Situation Comment: Lives with and 5 children current occupational status: employed current occupation: Landlord Feels Safe at Home: No Is there a partner from a previous relationship who is making you feel unsafe now?: No Childhood Exposure to Second-Hand Smoke: No Dental Care, Regularly: Yes Seatbelt Use: always Sunscreen Use: Yes Assistive Devices: None Review of Systems Review of Systems: All systems reviewed & are unremarkable except as noted in HPI & below Physical Exam Constitutional: well developed and well nourished; no acute distress Respiratory: normal respiratory effort; no respiratory distress and no labored breathing Gastrointestinal (Abdomen): Inspection/Auscultation: abdomen normal to inspection Musculoskeletal: Head/Neck/Chest: normocephalic Neurologic: moves all extremities and awake Psychiatric: Orientation: alert and oriented x 3 Results & Data Vital Signs (Past 12 Hours) Vital Signs Temp Pulse Pulse Pulse Resp BP BP 02/07/24 07:32 36.5 C 64 16 105/70 02/07/24 04:58 36 C L 66 16 129/88 02/07/24 04:00 68 18 103/61 02/07/24 03:38 70 02/07/24 03:00 57 L 16 91/60 L 02/07/24 02:00 73 16 108/70 02/07/24 01:00 76 16 96/56 L 02/07/24 00:00 72 18 100/59 L 02/06/24 23:40 74 02/06/24 23:30 78 18 114/74 02/06/24 23:00 85 18 113/74 02/06/24 22:11 79 20 113/68 Pulse Ox O2 Del Method 02/07/24 07:32 98 Room Air 02/07/24 04:58 98 Room Air 02/07/24 04:00 97 Room Air 02/07/24 03:38 02/07/24 03:00 96 Room Air 02/07/24 02:00 97 Room Air 02/07/24 01:00 99 Room Air 02/07/24 00:00 94 Room Air 02/06/24 23:40 02/06/24 23:30 92 Room Air 02/06/24 23:00 96 Room Air 02/06/24 22:11 95 Room Air PG Care Time/CCT Total # of Minutes Spent Total Time Spent with Patient: Total time spent is greater than 50% in coordination of care (as documented) at patient's floor/unit and/or counseling patient: Coding Level of Care Code 15037 IN/OBS CONSULT LVL 4,60M Diagnoses Right ureteral stone N20.1
[2024-02-07] MEDS: MoRPHine SULFATE 2 MG/ML CARP IV PRN (08:27)
[2024-02-07] MEDS: LACTATED RINGER'S 1,000 ML IV SCH (13:34)
[2024-02-07] MEDS ORDERED: LIDOCAINE 2% 2 ML VIAL/AMP(20MG/ML) INFIL ONE (13:47)
[2024-02-07] MEDS ORDERED: MIDAZOLAM HCL 1 MG/ML 2ML VIAL ONE (13:47)
[2024-02-07] MEDS ORDERED: ONDANSETRON INJ 2 MG/ML 2 ML VIAL ONE (13:47)
[2024-02-07] MEDS ORDERED: PROPOFOL IV EMULSION 10 MG/ML 20 ML VIAL IV ONE (13:47)
--- NOTE | 2024-02-07 14:08 | Anesthesiology Consultation ---
Date of Service February 07, 2024 Assessment & Plan Chart Review Chart Review: Acceptable Risk for Surgery Consults Requested none History Surgery Operation Date: 02/07/24 08:40 Proposed Procedures p Cystoscopy, Right Ureteral Stent Placement - Cornelius Landaverde DO Height/Weight Height: 5 ft 5 in Weight: 98.5 kg Allergies Allergy/AdvReac Type Severity Reaction Status Date / Time Estrogens Allergy Severe FACE Verified 02/06/24 21:18 SWELLS WITH CONTROL PILLS ethinyl estradiol Allergy Severe FACE Verified 02/06/24 21:18 [From NuvaRing] SWELLED etonogestrel [From NuvaRing] Allergy Severe FACE Verified 02/06/24 21:18 SWELLED Medications Home Medications Medication Instructions Recorded Confirmed Last Taken cholecalciferol (vitamin D3) 50 5,000 unit PO QAM 09/04/21 02/06/24 02/06/24 mcg (2,000 unit) capsule hydrochlorothiazide 25 mg tablet 25 mg PO QAM 10/21/23 02/06/24 02/06/24 biotin 10 mg tablet 10 mg PO DAILY 02/06/24 02/06/24 02/06/24 Active Medications Generic Name Dose Route Start Last Admin Trade Name Freq PRN Reason Stop Dose Admin Sodium Chloride 1,000 mls @ 100 mls/hr 02/07/24 04:15 02/07/24 05:11 Nss IV 02/08/24 00:14 100 mls/hr .Q10H BETTY Administration Lactated Ringer's 1,000 mls @ 15 mls/hr 02/07/24 13:30 02/07/24 13:34 Lr IV 03/08/24 13:29 15 mls/hr .Q24H BETTY Administration Ketorolac Tromethamine 15 mg 02/07/24 03:52 02/07/24 05:11 Ketorolac Tromethamine 15 Mg/Ml Vial IV 02/12/24 03:51 15 mg Q6H PRN Administration Pain Morphine Sulfate 2 mg 02/07/24 08:15 02/07/24 08:27 Morphine Sulfate 2 Mg/Ml Carp IV 02/21/24 08:14 2 mg Q4 PRN Administration Pain NPO Date Last Intake of Fluids: 02/06/24 Time Last Intake of Fluids: 19:00 Date Last Intake of Solids: 02/06/24 Time Last Intake of Solids: 19:00 Past Medical History Medical History Hyperglycemia Hgb A1C 6.3 in 07/2023 Borderline hyperlipidemia Borderline hypertension Nausea and vomiting after administration of anesthetic agent Bladder mass History of kidney stones History of anemia Past Family History Family History Grandfather (Maternal) Heart disease Myocardial infarction Daughter Ventricular septal defect Aunt Breast cancer Father Prostate cancer Other No family history of adverse response to anesthesia Denies family history of Ovarian cancer Colorectal cancer Past Surgical History Surgical History Hx of biopsy Thyroid Nodule, benign History of laparoscopy x2 for ovaries History of open reduction and internal fixation (ORIF) procedure x 3 surgeries left tib/fib/hardware & removal of hardware History of cystoscopy History of lithotripsy x 2 Status post excision of lipoma abdomen - benign History of wisdom tooth extraction History of tonsillectomy and adenoidectomy S/P section Social History Smoking Status: Never smoker Do You Dip or Chew Tobacco: No Hx Alcohol Use: Yes Alcohol type: beer alcohol intake frequency: holidays/special occasions only Hx Substance Use: No substance use type: does not use Physical Exam Vital Signs Last Vital Signs Temp 36.6 C 02/07/24 13:21 Pulse 67 02/07/24 13:21 Resp 16 02/07/24 13:21 BP 133/85 02/07/24 13:21 Pulse Ox 99 02/07/24 13:21 O2 Del Method Room Air 02/07/24 13:21 Testing Laboratory Results 02/06/24 19:30 02/06/24 19:30 Urine Color Yellow 02/06/24 19:27 Urine Appearance Turbid (Clear) A 02/06/24 19:27 Urine pH 8.5 (4.5-7.5) H 02/06/24 19:27 Ur Specific [place] 1.016 (1.000-1.030) 02/06/24 19:27 Urine Protein 1+ (Negative) H 02/06/24 19:27 Urine Glucose (UA) Negative (Negative) 02/06/24 19:27 Urine Ketones Trace (Negative) H 02/06/24 19:27 Urine Nitrite Negative (Negative) 02/06/24 19:27 Ur Leukocyte Esterase 3+ (Negative) H 02/06/24 19:27 Urine WBC (Auto) >50 /hpf (0-5) H 02/06/24 19:27 Urine RBC (Auto) 0-2 /hpf (0-2) 02/06/24 19:27 U Hyaline Cast (Auto) 0-2 /lpf (0-2) 02/06/24 19:27 U Epithel Cells (Auto) 3-5 /hpf (0-2) H 02/06/24 19:27 Urine Bacteria (Auto) None Seen (None Seen) 02/06/24 19:27 02/06/24 19:27 Urine Culture - Preliminary Urine,Clean Catch Gram negative bacilli 02/07/24 13:40 POC Ur Test NEG
[2024-02-07] MEDS ORDERED: PROMETHAZINE HCL 6.25 MG in SODIUM CHLORIDE 0.9% 50 ML IV PRN (14:09)
[2024-02-07] MEDS ORDERED: fentaNYL citrate PF 100 MCG/2 ML VIAL IV PRN (14:09)
[2024-02-07] MEDS ORDERED: ePHEDrine sulfate 50 MG/ML AMP IV PRN (14:09)
[2024-02-07] MEDS ORDERED: HYDROmorphone INJ 2 MG/ML SYR/VIAL IV PRN (14:09)
[2024-02-07] MEDS ORDERED: ATROPINE SULFATE 0.1 MG/ML 10ML SYR IV PRN (14:09)
[2024-02-07] MEDS ORDERED: ONDANSETRON INJ 2 MG/ML 2 ML VIAL IV PRN (14:09)
[2024-02-07] MEDS ORDERED: DEXAMETHASONE SOD INJ 4 MG/ML VIAL ONE (14:35)
[2024-02-07] MEDS: DIATRIZOATE MEGLUMINE 30% 100ML VIAL INSTIL ONE (14:36)
--- NOTE | 2024-02-07 14:46 | Operative Report ---
[facility] Post Operative Report Pre & Post Diagnosis Operation Date: 02/07/24 08:40 Pre-Op Diagnosis: Right Nephrolithiasis Post-Op Diagnosis: Right Nephrolithiasis I identified the patient and participated in the time-out.: Yes Procedure Operation Date: 02/07/24 08:40 Actual Procedures p Cystoscopy, Retrograde Pyelogram, Right Ureteral Stent Placement(Right) - Angus Landaverde DO Surgeon Cornelius Landaverde, II, DO Rn Hemodialysis None Estimated Blood Loss 0 Findings Consistent with Post-Op Diagnosis Stent placed in good position. Debris within right renal pelvis. Moderate inflammatory changes in bladder. Irritation of the left ureter orifice. Specimens None Drains 4.8 Fr x 24 on Right Anesthesia Type MAC Complications none Disposition Disposition: Recovery Room Indications Patient with obstruction. Risks and benefits discussed at length. Description of Procedure Patient was consented and brought back to the operating room. Patient was placed under anesthesia in the supine position and moved to the dorsal lithotomy position. Patient was prepped and draped in the regular sterile fashion. A time out was completed. A 30degree Cystoscope was placed into the bladder and the entire bladder was examined. The UO's were identified. Significant inflammation of the base of the bladder. Irritation most significant at the left UO. Thickening of tissue around left UO, possibly chronic. The Right UO was cannulized with a catheter and a retrograde pyelogram was completed. A wire was then placed. With the wire in place, a 4.8 Fr Double J stent was placed. It was confirmed with fluoroscopy. With the stent in place, the bladder was emptied. The scope was removed. The patient was cleaned, roger used from anesthesia, and transferred to the pacu in stable condition having tolerated the procedure well with no complications. I was present and participated in all aspects of the procedure. The patient will be monitored in the PACU until transferred. Will plan to set up stone treatment in next 1-2 weeks after adequate time for treatment of urinary infection. I attest to the content of the Intraoperative Record and any orders documented therein. Any exceptions are noted below.
--- NOTE | 2024-02-07 15:08 | Anesthesiology Progress Note ---
Date of Service February 07, 2024 Anesthesia Post Procedure Vital Signs Vital Signs: Temp Pulse Pulse Pulse Resp BP BP 02/07/24 15:00 82 15 127/90 02/07/24 14:51 36.0 C L 87 15 128/93 02/07/24 13:21 36.6 C 67 16 133/85 02/07/24 08:49 02/07/24 07:32 36.5 C 64 16 105/70 02/07/24 04:58 36 C L 66 16 02/07/24 04:00 68 18 02/07/24 03:38 70 02/07/24 03:00 57 L 16 02/07/24 02:00 73 16 02/07/24 01:00 76 16 02/07/24 00:00 72 18 02/06/24 23:40 74 02/06/24 23:30 78 18 02/06/24 23:00 85 18 02/06/24 22:11 79 20 02/06/24 19:43 109 H 02/06/24 19:20 37.6 C H 121 H 20 123/79 BP Pulse Ox O2 Del Method 02/07/24 15:00 95 Room Air 02/07/24 14:51 94 Room Air 02/07/24 13:21 99 Room Air 02/07/24 08:49 Room Air 02/07/24 07:32 98 Room Air 02/07/24 04:58 129/88 98 Room Air 02/07/24 04:00 103/61 97 Room Air 02/07/24 03:38 02/07/24 03:00 91/60 L 96 Room Air 02/07/24 02:00 108/70 97 Room Air 02/07/24 01:00 96/56 L 99 Room Air 02/07/24 00:00 100/59 L 94 Room Air 02/06/24 23:40 02/06/24 23:30 114/74 92 Room Air 02/06/24 23:00 113/74 96 Room Air 02/06/24 22:11 113/68 95 Room Air 02/06/24 19:43 02/06/24 19:20 97 Room Air Pain Intensity Back: Pain Intensity: 5 Transfer of Care Handoff Completed per policy Notes Mental Status: alert / awake / arousable and participated in evaluation Patient Amnestic to Procedure: Yes Nausea / Vomiting: adequately controlled Pain: adequately controlled Airway Patency, RR, SpO2: stable & adequate BP & HR: stable & adequate Hydration State: stable & adequate Anesthetic Complications: no major complications apparent
--- NOTE | 2024-02-07 16:09 | Hospitalist Progress Note ---
Date of Service February 07, 2024 Assessment & Plan (1) Right ureteral stone: Plan: Right-sided hydronephrosis due to a 4 mm calculus at the UPJ. Urology on board Placed a stent today 02/06 Further urologic stone management in a few weeks to be planned by urology (2) Sepsis: Plan: Secondary to infected kidney stone Patient had leukocytosis and was tachycardic and was intermittently hypotensive Met sepsis criteria Being treated with IV ceftriaxone Sepsis resolved Continue to treat with IV antibiotics (3) Pyelonephritis: Plan: Complicated pyelonephritis due to infected stone with sepsis Follow-up urine culture results. Growing gram-negative selma Continue IV ceftriaxone (4) Hypertension: Plan: Holding hydrochlorothiazide due to borderline hypotension on admission May consider resuming if blood pressure creeps up Plan Full code DVT prophylaxis: Early ambulation Admission and Anticipated Discharge Date Admission Date: February 07, 2024 Subjective I had seen the patient before she went to the OR for stent placement. She had received her morphine and was feeling better. She was able to sleep. Her pain was starting to come back again. She is looking forward to stent placement. Review of Systems Review of Systems: All systems reviewed & are unremarkable except as noted in Subjective Physical Exam Physical Exam: General: Awake, conversant Heart: S1, S2/regular rate and rhythm, no murmur rubs or gallops Lungs: Clear to auscultation bilaterally. Normal effort Abdomen: Soft/nontender/nondistended. No hepatosplenomegaly Extremities: No clubbing/cyanosis. No edema Behavior: Appropriate, cooperative Results & Data Results & Data Vital Signs (Past 12 Hours) Vital Signs Temp Pulse Pulse Resp BP BP Pulse Ox 02/07/24 15:58 36.6 C 70 16 137/87 97 02/07/24 15:33 36.4 C L 64 18 133/88 98 02/07/24 15:20 36.5 C 76 14 122/81 94 02/07/24 15:10 36.5 C 77 15 128/85 97 02/07/24 15:00 82 15 127/90 95 02/07/24 14:51 36.0 C L 87 15 128/93 94 02/07/24 13:21 36.6 C 67 16 133/85 99 02/07/24 08:49 02/07/24 07:32 36.5 C 64 16 105/70 98 02/07/24 04:58 36 C L 66 16 129/88 98 O2 Del Method 02/07/24 15:58 Room Air 02/07/24 15:33 Room Air 02/07/24 15:20 Room Air 02/07/24 15:10 Room Air 02/07/24 15:00 Room Air 02/07/24 14:51 Room Air 02/07/24 13:21 Room Air 02/07/24 08:49 Room Air 02/07/24 07:32 Room Air 02/07/24 04:58 Room Air Laboratory Results Abnormal lab results 02/06/24 02/06/24 Range/Units 19:27 19:30 WBC 19.94 H (4.8-10.8) K/ul RBC 5.55 H (4.20-5.40) M/uL RDW Coeff of Srini 14.6 H (11.5-14.5) % Plt Count 417 H (130-400) K/uL Neut # (Auto) 18.02 H (1.40-6.50) K/uL Lymph # (Auto) 1.17 L (1.20-3.40) K/uL Sodium 133 L (136-145) mmol/L Chloride 95 L (98-107) mmol/L Anion Gap 13 H (3-11) Glucose 161 H (70-99(Fasting)) mg/dl ALT 55 H (7-52) U/L Total Protein 8.4 H (6.0-8.3) gm/dl Urine Appearance Turbid A (Clear) Urine pH 8.5 H (4.5-7.5) Urine Protein 1+ H (Negative) Urine Ketones Trace H (Negative) Urine Blood Trace H (Negative) Ur Leukocyte Esterase 3+ H (Negative) Urine WBC (Auto) >50 H (0-5) /hpf U Epithel Cells (Auto) 3-5 H (0-2) /hpf Diagnostic Findings Abdomen/Pelvis CT 02/06/24 20:45 Exam(s): CT ABDOMEN + PELVIS With Contrast IV Amt: OPTIRAY 320 94ML EXAM: CT Abdomen and Pelvis With Intravenous Contrast CLINICAL HISTORY: Back Pain. TECHNIQUE: Axial computed tomography images of the abdomen and pelvis with intravenous contrast. CTDI is 27.97 mGy and DLP is 1462.85 mGy-cm. Automated exposure control was utilized for the study. A dose lowering technique was utilized adhering to the principles of ALARA. CONTRAST: Patient received OPTIRAY 320 94ML of IV contrast COMPARISON: Pelvic ultrasound 07/16/[address] abdomen and pelvis 07/16/2023 FINDINGS: Lung bases: Unremarkable. No mass. No consolidation. ABDOMEN: Liver: Hepatomegaly and fatty infiltration of the liver. The liver measures 18.2 cm. Gallbladder and bile ducts: Unremarkable. No calcified stones. No ductal dilation. Pancreas: Unremarkable. No mass. No ductal dilation. Spleen: Unremarkable. No splenomegaly. Adrenals: Unremarkable. No mass. Kidneys and ureters: Mild right hydronephrosis secondary to a 4 mm uteropelvic junction calculus. Additional nonobstructing renal calculi measure up to 3 mm. No left hydronephrosis. Stomach and bowel: Diverticulosis. No obstruction. No mucosal thickening. PELVIS: Appendix: Normal appendix. Bladder: Unremarkable. No mass. Reproductive: Unremarkable as visualized. ABDOMEN and PELVIS: Intraperitoneal space: Unremarkable. No free air. No significant fluid collection. Bones/joints: There are degenerative changes of the spine. No acute fracture. No dislocation. Soft tissues: Unremarkable. Vasculature: Unremarkable. No abdominal aortic aneurysm. Lymph nodes: Unremarkable. No enlarged lymph nodes. IMPRESSION: 1. Mild right hydronephrosis secondary to a 4 mm uteropelvic junction calculus. 2. Additional nonobstructing renal calculi measure up to 3 mm. No left hydronephrosis. 3. Hepatomegaly and fatty infiltration of the liver. 4. Diverticulosis. Electronically signed by: Geraldine Reynolds MD 02/07/24 02:05 AM PG Care Time/CCT Total # of Minutes Spent Total Time Spent with Patient: Total time spent is greater than 50% in coordination of care (as documented) at patient's floor/unit and/or counseling patient: Coding Level of Care Code 96948 SUB INP/OBS CARE 2/35MIN Diagnoses Right ureteral stone N20.1 Sepsis A41.9 Pyelonephritis N12 Hypertension I10
[2024-02-07] MEDS: POLYETHYLENE (MIRALAX) 17 GM PACK PO PRN (17:33)
[2024-02-07] MEDS: ONDANSETRON INJ 2 MG/ML 2 ML VIAL IV PRN (18:33)
[2024-02-07] MEDS: IBUPROFEN 600 MG TAB PO PRN (19:28)
[2024-02-07] MEDS: TAMSULOSIN HCL 0.4 MG CAP PO SCH (21:02)
[2024-02-07] MEDS: MELATONIN 3 MG TAB PO PRN (21:02)
[2024-02-07] MEDS: cefTRIAXone SODIUM 2,000 MG/50 ML BAG IV SCH (21:35)
--- NOTE | 2024-02-08 06:09 | Electrocardiogram Report ---
Test Reason : Blood Pressure : / mmHG Vent. Rate : 121 BPM Atrial Rate : 121 BPM P-R Int : 158 ms QRS Dur : 076 ms QT Int : 310 ms P-R-T Axes : 028 003 036 degrees QTc Int : 440 ms Poor data quality, interpretation may be adversely affected Sinus tachycardia Indeterminate axis Poor R wave progression, consider anterior PA vs. lead placement vs. LVH When compared with ECG of 01-NOV-2023 11:06, Vent. rate has increased BY 55 BPM Confirmed by Meir Mcneil ([id number]) on 02/08/2024 6:08:58 AM Referred By: REFERRED SELF Confirmed By:Meir Mcneil
[2024-02-08 06:32] LABS: Mean Corpuscular Hemoglobin 26.4 pg (25.0-34.0); Mean Corpuscular Hgb Conc 31.6 g/dL (32.0-36.0); Mean Corpuscular Volume 83.7 fL (80.0-100.0); Mean Platelet Volume 9.9 fL (9.4-12.4); Platelet Count 342 K/uL (130-400); RDW Coefficient of Variation 14.3 % (11.5-14.5); RDW Standard Deviation 43.8 fL (36.4-46.3); Red Blood Count 4.54 M/uL (4.20-5.40); White Blood Count 11.63 K/ul (4.8-10.8)
[2024-02-08 06:43] LABS: Calcium 8.1 mg/dl (8.6-10.3); Potassium 3.9 mmol/L (3.5-5.1)
[2024-02-08 06:49] LABS: BUN Creatinine Ratio 11.7 (10-20); Creatinine Clr Calc Pharmacy 136.1 ml/min; Est GFR (African American) 126.7 ml/min; Est GFR (Non-African American) 109.3 ml/min
--- NOTE | 2024-02-08 10:46 | Discharge Summary ---
Date of Service February 08, 2024 Admission HPI Per Admitting Provider Pt is a 48 yo female with PMH of impaired fasting glucose, HLD, HTN, and kidney stones presenting due to low back pain, chills/fever, and nausea. Pt notes her symptoms started 2 days ago with fevers, chills, and back pain. She denies pain with urination but does endorse some trouble emptying her bladder. She relays an extensive hx of kidney stones including multiple lithotripsies. She is on HCTZ d/t her hx of stones. She has had oxalate stones in the past. In the ER, pt received LR 1L x1, NS 1L x1, tylenol 1000mg x1, and ceftriaxone x1. Admission Exam Per Admitting Provider Constitutional: NAD, mildly hypotensive. Respiratory: CTA bilaterally. Non labored breathing. No rhonchi, wheezing, or crackles. Cardiovascular: RRR. No murmurs noted. No LE edema. Gastrointestinal (Abdomen): Nontender, +BS. No masses noted. Skin: No rashes or skin lesions noted. Neurologic: Sensation grossly intact. No FND appreciated. Psychiatric: Speech of normal pace and content. Mood and affect congruent. Principal Diagnosis * Right infected obstructing ureteric stone * Right pyelonephritis * Sepsis Discharge Exam General: Awake, conversant Heart: S1, S2/regular rate and rhythm, no murmur rubs or gallops Lungs: Clear to auscultation bilaterally. Normal effort Abdomen: Soft/nontender/nondistended. No hepatosplenomegaly Extremities: No clubbing/cyanosis. No edema Behavior: Appropriate, cooperative Discharge Data Allergies Allergy/AdvReac Type Severity Reaction Status Date / Time Estrogens Allergy Severe FACE Verified 02/06/24 21:18 SWELLS WITH CONTROL PILLS ethinyl estradiol Allergy Severe FACE Verified 02/06/24 21:18 [From NuvaRing] SWELLED etonogestrel [From NuvaRing] Allergy Severe FACE Verified 02/06/24 21:18 SWELLED Consultations 02/07/24 03:15 ED Decision to Admit Stat 02/07/24 03:55 Consult Urology Routine Procedures Performed Operation Date: 02/07/24 08:40 Actual Procedures p Cystoscopy, Retrograde Pyelogram, Right Ureteral Stent Placement(Right) - Cornelius Landaverde DO Ordered Studies 02/06/24 20:45 CT abd pelvis IV con only Stat 02/07/24 10:18 FL retrograde includes kub Routine Hospital Course (1) Right ureteral stone: Right-sided hydronephrosis due to a 4 mm calculus at the UPJ. Urology on board Placed a stent 02/06 Further urologic stone management in a few weeks to be planned by urology Follow-up with urology in 2 weeks (2) Sepsis: Secondary to infected kidney stone Patient had leukocytosis and was tachycardic and was intermittently hypotensive Met sepsis criteria Was treated with IV ceftriaxone Sepsis resolved Discharged on cefdinir (3) Pyelonephritis: Complicated pyelonephritis due to infected stone with sepsis Follow-up urine culture results. Grew E. coli that is pansensitive. Switch from IV ceftriaxone to p.o. cefdinir (4) Hypertension: Resume home blood pressure medications Plan Full code DVT prophylaxis: Early ambulation Total Time Total Time Spent Total Time Spent (In Minutes): 35 Discharge Plan Discharge Items Patient Disposition: Home - Self-Care Reason For Visit: RIGHT NEPHROLITHIASIS, PYELO Discharge Diagnosis: * Right infected obstructing ureteric stone * Right pyelonephritis * Sepsis Activity: Resume your previous activity Non-emergency contact: Primary Care Provider Call non-emergency contact if: you have any medication questions and your symptoms worsen Follow-up/Referrals: Angel Sol MD [Primary Care Provider] - 02/17/24 11:00 am Cornelius Landaverde DO [Physician] - 02/16/24 1:30 pm Diet: Heart Healthy Addtl Attending Provider Instructions: * Advised to follow-up with your PCP in 1 week * Advised to follow-up with your urologist in 2 weeks Pending Studies at Discharge: No Stand-Alone Forms: My [facility] Medications and DC Order Prescriptions: New tamsulosin 0.4 mg Capsule 0.4 mg PO HS 14 Days Qty: 14 0RF cefdinir 300 mg capsule 300 mg PO BID 5 Days Qty: 10 0RF Continued cholecalciferol (vitamin D3) 50 mcg (2,000 unit) capsule 5,000 unit PO QAM hydrochlorothiazide 25 mg tablet 25 mg PO QAM biotin 10 mg Tablet 10 mg PO DAILY Discharge Orders: Discharge Order (Routine); Ordered 02/08/24 Ordered By: Brianne Beltran Admission Data Admit Date/Time: 02/07/24 03:52 Attending Provider: Brianne Beltran Admit Provider: Roxana Dejesus Primary Care Provider: Angel Sol V. Other Providers: Colt Xavier; Gonzalez Noe; Chris Barlow; Chris Mansfield; Nanette Zarate; Cornelius Landaverde; Megan Cantu; Batsheva Vazquez; Roly Huitron; Sania Noriega; Jose Carlos Frankel; Oniel Diana; Johnnie Christopher Other Interventions: Discharge Summary Assessment (RN) Last Done: 02/08/24 11:36 Coding Level of Care Code 37763 INP/OBS DISCH >30 MIN Diagnoses Right ureteral stone N20.1 Sepsis A41.9 Pyelonephritis N12 Hypertension I10
--- NOTE | 2024-02-08 11:07 | Urology Progress Note ---
Date of Service February 08, 2024 Assessment & Plan (1) Right ureteral stone: Plan: Follow-up of an obstructing right UPJ stone, UTI POD #1 status post right ureteral stent placement She is afebrile and hemodynamically stable Labs reviewedcreatinine 0.60, WBC improved to 11.63, Hgb 12.0 Urine culture with 80K CFU of E. coli, pansensitive Notes hematuria post procedure which can be expected with stent Recommend discharge with appropriate antibiotics when medically stable Recommend tamsulosin and as needed analgesia for stent management Will arrange outpatient follow-up with our service to discuss definitive stone management will sign off, please contact our service with any additional questions or concerns Admission and Anticipated Discharge Date Admission Date: February 07, 2024 Subjective Patient seen and examined at bedside She reports hematuria postprocedure No dysuria Minimal flank discomfort Reports nausea last night, improved today No fever or chills Review of Systems Constitutional: as per Subjective / HPI Genitourinary: as per Subjective / HPI Physical Exam Constitutional: well developed and well nourished; no acute distress Respiratory: normal respiratory effort; no respiratory distress and no labored breathing Gastrointestinal (Abdomen): Inspection/Auscultation: abdomen normal to inspection Musculoskeletal: Head/Neck/Chest: normocephalic Neurologic: moves all extremities and awake Psychiatric: Orientation: alert and oriented x 3 Results & Data Vital Signs (Past 12 Hours) Vital Signs Temp Pulse Resp BP Pulse Ox O2 Del Method 02/08/24 08:44 Room Air 02/08/24 07:06 36.3 C L 51 L 16 117/69 98 Room Air 02/08/24 03:08 36.4 C L 55 L 16 113/70 95 Room Air PG Care Time/CCT Total # of Minutes Spent Total Time Spent with Patient: Total time spent is greater than 50% in coordination of care (as documented) at patient's floor/unit and/or counseling patient: Coding Level of Care Code 48524 SUB INP/OBS CARE 09/02MIN Diagnoses Right ureteral stone N20.1
--- NOTE | 2024-02-08 14:26 | Fluoroscopy Report ---
FL retrograde includes kub CLINICAL HISTORY: RIGHT STENT COMPARISON STUDY: None. FLUOROSCOPY TIME: 13 seconds FLUOROSCOPY IMAGES: 3 Ka,r: 4.1 mGy FINDINGS: Retrograde opacification of the right renal collecting system followed by placement of a ri ght ureteral stent. The ureteral stent appears in good position. IMPRESSION: Fluoroscopic assistance as above. ACT 112: Negative or not required by law. Electronically signed by: Nash King M.D. 02/08/2024 2:24 PM
== END 2024-02-08 12:40 | disposition home or self-care (01) | DRG 854 ==
LOC: ED 19:19 → SUATTDRO 02-07 03:52 → 3E 02-07 03:52